=== PATIENT | female | born 2000 ===

== ENCOUNTER 2024-05-27 00:03 | Inpatient (IN) ==
[2024-05-27] MEDS: 0.9 % SODIUM CHLORIDE 1,000 ML IV SCH (00:56)
[2024-05-27] MEDS: HYDROmorphone 0.5 MG/0.5 ML SYRINGE IV PRN (06:43)
[2024-05-27] MEDS: ONDANSETRON 4 MG/2 ML VIAL IV PRN (06:52)
[2024-05-27 07:21] LABS: Basophils # (Auto) 0.02 K/mcL (0.00-0.30); Basophils % (Auto) 0.1 % (0.0-2.0); Eosinophils # (Auto) 0 K/mcL (0.00-0.70); Eosinophils % (Auto) 0 % (0.0-7.0); Hematocrit 33.8 % (34.1-44.9); Hemoglobin 11.5 g/dL (11.2-15.7); Lymphocytes # (Auto) 0.83 K/mcL (1.50-4.80); Lymphocytes % (Auto) 5.3 % (15.5-49.0); Mean Cell Volume 83.5 fL (80.0-100.0); Mean Platelet Volume 9.9 fL (8.8-12.5); Monocytes # (Auto) 1.19 K/mcL (0.10-0.90); Monocytes % (Auto) 7.5 % (1.0-12.0); Neutrophils % (Auto) 86.8 % (38.0-78.0); Platelet Count 221 K/mcL (140-440); RBC 4.05 M/mcL (3.59-5.38); Red Cell Distribution Width 13.6 % (11.5-14.5); WBC 15.8 K/mcL (4.5-11.0)
[2024-05-27] MEDS: ACETAMINOPHEN 1,000 MG/100 ML BAG IV SCH (07:33)
[2024-05-27 07:44] LABS: ALT/SGPT 50 U/L (<40); AST/SGOT 21 U/L (<32); Albumin 2.8 gm/dL (3.2-5.2); Albumin/Globulin Ratio 0.9 (1.0-2.3); Alkaline Phosphatase 48 U/L (39-117); Bilirubin,Total 0.4 mg/dL (0.1-1.0); Blood Urea Nitrogen 12 mg/dL (6-20); Calcium 7.7 mg/dL (8.6-10.4); Carbon Dioxide 21 mmol/L (22-30); Chloride 101 mmol/L (96-108); Globulin 3.1 gm/dL (2.2-3.7); Glomerular Filtration Rate 90; Glucose 118 mg/dL (70-105); Potassium 2.9 mmol/L (3.3-5.1); Sodium 136 mmol/L (133-145)
[2024-05-27] MEDS ORDERED: KETOROLAC 30 MG/ML VIAL IV PRN (08:09)
[2024-05-27] MEDS ORDERED: ONDANSETRON 4 MG/2 ML VIAL IV PRN ×2 (08:09→11:05)
[2024-05-27] MEDS ORDERED: IPRATROPIUM/ALBUTEROL 3 ML AMPUL.NEB NEB PRN ×2 (08:09→11:05)
[2024-05-27] MEDS: POTASSIUM CHLORIDE 40 MEQ in 0.9 % SODIUM CHLORIDE 1,000 ML IV SCH (08:44)
[2024-05-27 08:53] LABS: Appearance,Urine Clear (Clear); Bilirubin,Urine Negative (Negative); Color,Urine Yellow; Glucose,Urine (UA) Negative (Negative); Ketones,Urine Negative (Negative); Leukocyte Esterase,Urine Negative /uL (Negative); Nitrate,Urine Negative (Negative); Protein,Urine >=300 mg/dL (Negative); Specific Gravity,Urine 1.015 (1.000-1.035); Urine Blood Small ery/mcL (Negative); Urine RBC 30 /hpf (0-3); Urine Squamous Epithelial Cell 18 /hpf (0-4); Urine WBC 0 /hpf (0-4); Urobilinogen,Urine Normal
[2024-05-27] MEDS: DOCUSATE SODIUM 100 MG CAPSULE PO SCH (09:16)
[2024-05-27] MEDS ORDERED: KETAMINE 50 MG/ML Syringe IV ONE (10:24)
[2024-05-27] MEDS ORDERED: PROPOFOL 200 MG/20 ML VIAL IV ONE (10:24)
[2024-05-27] MEDS ORDERED: LIDOCAINE 2% PF 5 ML VIAL ONE (10:25)
[2024-05-27] MEDS ORDERED: DEXAMETHASONE 10 MG/ML VIAL ONE (10:25)
[2024-05-27] MEDS ORDERED: ONDANSETRON 4 MG/2 ML VIAL ONE (10:25)
[2024-05-27] MEDS ORDERED: PHENYLephrine 1 MG/10 ML SYRINGE (ANEST) ONE (10:51)
[2024-05-27] MEDS: IOVERSOL 50 ML VIAL IV ONE (11:00)
[2024-05-27] MEDS ORDERED: MEPERIDINE 25 MG/ML VIAL IV PRN (11:05)
[2024-05-27] MEDS ORDERED: fentaNYL 100 MCG/2 ML VIAL IV PRN (11:05)
[2024-05-27] MEDS ORDERED: LACTATED RINGERS 250 ML IV PRN (11:05)
[2024-05-27] MEDS ORDERED: NALOXONE HCL 0.4 MG/ML VIAL IV PRN (11:05)
[2024-05-27] MEDS ORDERED: diphenhydrAMINE 50 MG/ML VIAL IV PRN (11:05)
[2024-05-27] MEDS: ACETAMINOPHEN 1,000 MG/100 ML BAG IV ONE (11:23)
[2024-05-27] MEDS: CALCIUM GLUCONATE 4.65 MEQ in DEXTROSE 5% IN WATER 50 ML IV SCH (12:20)
[2024-05-27] MEDS: LACTATED RINGERS 1,000 ML IV SCH (12:28)
[2024-05-27] MEDS: cefTRIAXone 2 GM in DEXTROSE 5% IN WATER 50 ML IV SCH (14:00)
[2024-05-27] MEDS: LIDOCAINE 2% URO-JET 10 ML JEL.PF.APP UR ONE (15:09)
[2024-05-27] MEDS: 0.9 % SODIUM CHLORIDE 10 ML SYRINGE IV SCH (15:09)
[2024-05-27] MEDS: ACETAMINOPHEN 325 MG TABLET PO PRN (16:52)
[2024-05-27] MEDS: oxyCODONE IR 5 MG TABLET PO PRN (18:23)
[2024-05-27] MEDS: SENNOSIDES 1 TABLET PO SCH (21:47)
[2024-05-27] MEDS: traZODone HCL 50 MG TABLET PO PRN (21:47)
[2024-05-28 06:11] LABS: Basophils # (Auto) 0.01 K/mcL (0.00-0.30); Basophils % (Auto) 0.1 % (0.0-2.0); Eosinophils # (Auto) 0 K/mcL (0.00-0.70); Eosinophils % (Auto) 0 % (0.0-7.0); Hematocrit 35.7 % (34.1-44.9); Hemoglobin 11.9 g/dL (11.2-15.7); Lymphocytes # (Auto) 1.17 K/mcL (1.50-4.80); Lymphocytes % (Auto) 8.3 % (15.5-49.0); Mean Cell Volume 85.6 fL (80.0-100.0); Mean Corpuscular HGB Conc 33.3 g/dL (31.0-36.0); Mean Platelet Volume 10.7 fL (8.8-12.5); Monocytes # (Auto) 0.35 K/mcL (0.10-0.90); Monocytes % (Auto) 2.5 % (1.0-12.0); Neutrophils % (Auto) 88.7 % (38.0-78.0); Platelet Count 236 K/mcL (140-440); RBC 4.17 M/mcL (3.59-5.38); Red Cell Distribution Width 14.2 % (11.5-14.5); WBC 14.1 K/mcL (4.5-11.0)
[2024-05-28 06:39] LABS: ALT/SGPT 78 U/L (<40); AST/SGOT 53 U/L (<32); Albumin 2.9 gm/dL (3.2-5.2); Albumin/Globulin Ratio 0.9 (1.0-2.3); Alkaline Phosphatase 56 U/L (39-117); Bilirubin,Direct < 0.2 mg/dL (0-0.3); Bilirubin,Total 0.3 mg/dL (0.1-1.0); Blood Urea Nitrogen 10 mg/dL (6-20); Calcium 8.7 mg/dL (8.6-10.4); Carbon Dioxide 22 mmol/L (22-30); Chloride 106 mmol/L (96-108); Globulin 3.4 gm/dL (2.2-3.7); Glomerular Filtration Rate 129; Glucose 132 mg/dL (70-105); Lactate Dehydrogenase 200 U/L (135-225); Phosphorous 1.6 mg/dL (2.5-4.5); Potassium 4.2 mmol/L (3.3-5.1); Sodium 139 mmol/L (133-145); Triglycerides 176 mg/dL (<150); Uric Acid 4.5 mg/dL (2.5-8.0)
[2024-05-28 11:33] VITALS: TEMP 97.5; O2SAT 99
== END 2024-05-28 11:20 | disposition home or self-care (01) | DRG 659 ==
LOC: ED 00:03 → MEDSUR 00:31
PROVIDERS: ADMIT Internal Medicine; ATTEND Internal Medicine